=== PATIENT | male | born 1990 | race Two or more races ===

== ENCOUNTER 2017-02-11 05:30 | Emergency (ER) | payer MEDICAID ==
--- NOTE | 2017-02-11 05:46 | ED Physician Chart ---
Chief Complaint/HPI - Patient Information Date Seen:: 02/11/17 Time Seen:: 05:30 Chief Complaint:: L flank pain since about 4 am today. History of Present Illness:: Brought in by private auto because of acute onset of L flank pain since about 4 am today. Pain is characterized as localized, sharp, and constant. Pain can be worsened with standing up, improved with lying down. No fever. Pt had nausea/ vomiting earlier with vomitus consisted of gastric content. No hematemesis. Last BM yesterday at about 6 pm with normal color/consistency. No hematochezia or melena. No dysuria, urgency, or frequency with urination. Allergies:: Allergies Allergy/AdvReac Type Severity Reaction Status Date / Time No Known Allergies Allergy Verified 02/11/17 05:38 Vitals:: see Nurse Note. Historian:: Patient Family MD/PCP:: Unknown LMP:: N/A Review:: Nurse's Note Reviewed Review of Systems - Review of Systems General/Constitutional: No fever, No chills, No weight loss, No weakness, No edema, No loss of appetite Skin: No skin lesions, No rash, No bruising Head: No headache, No light-headedness Eyes: No loss of vision, No pain, No diplopia ENT: No earache, No nasal drainage, No sore throat Neck: No neck pain, No swelling, No thyromegaly, No stiffness, No mass noted Cardio Vascular: No chest pain, No palpitations, No edema Pulmonary: No SOB, No cough, No wheezing GI: Nausea, Vomiting, No diarrhea, Pain, No melena, No hematochezia, No constipation, No hematemesis G/U: No dysuria, No frequency, No hematuria Musculoskeletal: No bone or joint pain, No back pain, No muscle pain Endocrine: No polyuria, No polydipsia Psychiatric: No prior psych history Hematopoietic: No bruising, No lymphadenopathy Allergic/Immuno: No urticaria, No angioedema Neurological: No syncope, No focal symptoms, No weakness, No paresthesia, No headache, No dizziness, No confusion, No vertigo Past Medical History - Past Medical History Past Medical History: No significant medical hx Family History: Heart disease (PGF), Diabetes Melitus (PGF, PGM.), HTN (PGF, PGM ), Cancer (PGF) Social History: Smoker (1/2 pack per week. Pt has been informed about health risks associated with chronic tobacco use and has been advised to quit. Pt has been encouraged to enroll in a smoking cessation program. Pt acknowledges understanding.), Alcohol (Occaional on weekend. Pt has been informed about health risks associated with alcohol use and has been advised to stop. 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 Surgical History: None Psychiatricy History: None Medication: None Family Medical History - Family Member Father History Unknown: Yes Hx Family Diabetes: Yes Physical Exam - Physical Examination General/Constitutional: Awake, Well-developed, well-nourished, Alert, GCS 15, Non-toxic appearing, Ambulatory Other Gen/Cons comments:: Breathes comfortably, speaks clearly, and ambulates without difficulty. Pt is in severe distress due to L flank pain. Head: Atraumatic Eyes: Lids, conjuctiva normal, PERRL, EOMI Other Eyes comments:: Anicteric sclera Skin: Nl inspection, No rash, No skin lesions, No ecchymosis, Well hydrated, No lymphadenopathy ENMT: External ears, nose nl, Nasal exam nl, Lips, teeth, gums nl, Oropharynx nl , Tonsils nl Neck: Nontender, Full ROM w/o pain, No nuchal rigidity, No mass, No stridor Respiratory: Nl effort/Exclusion, Clear to Auscultation, No Wheeze/Rhonchi/Rales Cardio Vascular: RRR, No murmur, gallop, rubs GI: No organomegaly, No hernia, Normal BS's, Nondistended, No mass/bruits, No McBurney tenderness Other GI comments:: Tenderness to palpation at L flank. Soft. No R/G. : No CVA tenderness Extremities: No tenderness or effusion, Full ROM, normal strength in all extremities, No edema, Normal digits & nails Neuro/Psych: Alert/oriented (oriented x 3), Normal gait, No focal deficits Misc: normal gait, Normal back, No paraspinal tenderness ED Septic Shock - . Is Septic Shock (SBP<90, OR Lactate>4 mmol\L) present?: No Reassessment (Disposition) - Reassessment Reassessment:: 0635 Pt feels much better and does not need more pain control. Awaiting lab results and CT. 0710 Pt remains stable. Case has been signed off to Dr. Machuca at 0710 for continued care. - Diagnosis Diagnosis:: L flank pain. Stable and improved.
[2017-02-11] MEDS ORDERED: HYDROmorphone 1 mg/mL 1mL Syr ONE (05:58)
[2017-02-11] MEDS: HYDROmorphone 1 mg/mL 1mL Syr IVP STA (06:17)
[2017-02-11 06:19] LABS: URINE COLOR YELLOW
[2017-02-11 06:20] LABS: URINE BILIRUBIN NEGATIVE (NEGATIVE); URINE BLOOD NEGATIVE (NEGATIVE); URINE GLUCOSE (UA) NEGATIVE (NEGATIVE); URINE KETONE NEGATIVE (NEGATIVE); URINE PH 5.5; URINE PROTEIN NEGATIVE (NEGATIVE); URINE UROBILINOGEN 0.2 E.U./dL (0.2 - 1.0)
[2017-02-11 06:21] LABS: % BASOPHILS 1.4 % (0.0-2.0); % EOSINOPHILS 1.7 % (0.0-5.0); % LYMPHOCYTES 21.3 % (20.0-50.0); % MONOCYTES 6.5 % (2.0-10.0); % NEUTROPHILS 69.1 % (40.0-80.0); HEMOGLOBIN 15.8 gm/dL (13.2-17.3); MEAN CELL VOLUME 97.4 fl (80-99); MEAN CORPUSCULAR HEMOGLOBIN 32.8 pg (26.0-30.0); MEAN CORPUSCULAR HGB CONC 33.7 pg (28.0-36.0); NEUTROPHILE ABSOLUTE 6.9 Th/cmm (1.8-8.0); PLATELET COUNT 326 Th/cmm (150-400); RED BLOOD COUNT 4.82 Mil/cmm (4.30-5.70); WHITE BLOOD COUNT 10.1 Th/cmm (4.8-10.8)
[2017-02-11 06:35] LABS: INR 0.92 (0.5-1.4); PROTHROMBIN TIME (TEST) 9.6 SECONDS (9.5-11.5)
[2017-02-11 06:37] LABS: ALB/GLOB RATIO 1.9 (1.0-1.8); ALKALINE PHOSPHATASE 55 U/L (34-104); AMYLASE SERUM 42 U/L (29-103); ANION GAP 11.7 (7.0-16.0); BILIRUBIN,TOTAL 0.5 mg/dL (0.3-1.0); BUN - UREA NITROGEN 14 mg/dL (7-25); BUN/CREATININE RATIO 12.7; CALCIUM SERUM 10.3 mg/dL (8.6-10.3); CARBON DIOXIDE 23.1 mEq/L (21.0-31.0); CHLORIDE 104 mEq/L (98-107); CREATININE - SERUM 1.1 mg/dL (0.7-1.3); GLUCOSE 124 mg/dL (70-105); LIPASE 13 U/L (11-82); POTASSIUM SERUM 3.8 mEq/L (3.5-5.1); SGOT 16 U/L (13-39); SGPT/ALT 20 U/L (7-52); SODIUM SERUM 135 mEq/L (136-145)
--- NOTE | 2017-02-11 08:32 | Diagnostic Imaging Report ---
CT scan abdomen and pelvis without intravenous contrast HISTORY: Pain Total DLP equals 585 CTDI equals 10.4 Axial sections were obtained from the xiphoid process down to the pubic symphysis. The liver exhibits a normal size and contour. No focal lesions. The spleen appears normal. No abnormality seen in the region of pancreas. No focal renal lesions. No calculi. No hydronephrosis. No definite abnormality seen in the region of the appendix. The exam of the pelvis demonstrates preservation of normal fat planes. No abnormal soft tissue masses or abnormal fluid collections. IMPRESSION: No acute abnormalities
--- NOTE | 2017-02-11 08:45 | ED Physician Chart ---
Chief Complaint/HPI - Patient Information Allergies:: Allergies Allergy/AdvReac Type Severity Reaction Status Date / Time No Known Allergies Allergy Verified 02/11/17 05:38 Vitals:: Vital Signs - 8 hr 02/11/17 05:35 Temp 96.9 F HR 63 RR 18 BP 136/74 O2 Sat % 100 Family Medical History - Family Member Father History Unknown: Yes Hx Family Diabetes: Yes Labs/Radiology/EKG Results - Lab Results Results: Laboratory Tests 02/11/17 02/11/17 02/11/17 05:50 06:10 06:10 WBC 10.1 RBC 4.82 Hgb 15.8 Hct 47.0 MCV 97.4 MCH 32.8 H MCHC Differential 33.7 RDW 12.0 Plt Count 326 MPV 8.0 Neutrophils % 69.1 Lymphocytes % 21.3 Monocytes % 6.5 Eosinophils % 1.7 Basophils % 1.4 PT 9.6 INR 0.92 PTT (Actin FS) 20.9 L Sodium Potassium Chloride Carbon Dioxide Anion Gap BUN Creatinine Est GFR ( Amer) Est GFR (Non-Af Amer) BUN/Creatinine Ratio Glucose Calcium Total Bilirubin AST ALT Alkaline Phosphatase Total Protein Albumin Globulin Albumin/Globulin Ratio Amylase Lipase Urine Source CLEAN C Urine Color YELLOW Urine Clarity CLEAR Urine pH 5.5 Ur Specific [place] >= 1.030 Urine Protein NEGATIVE Urine Glucose (UA) NEGATIVE Urine Ketones NEGATIVE Urine Blood NEGATIVE Urine Nitrate NEGATIVE Urine Bilirubin NEGATIVE Urine Urobilinogen 0.2 Ur Leukocyte Esterase NEGATIVE 02/11/17 06:10 WBC RBC Hgb Hct MCV MCH MCHC Differential RDW Plt Count MPV Neutrophils % Lymphocytes % Monocytes % Eosinophils % Basophils % PT INR PTT (Actin FS) Sodium 135 L Potassium 3.8 Chloride 104 Carbon Dioxide 23.1 Anion Gap 11.7 BUN 14 Creatinine 1.1 Est GFR ( Amer) > 60.0 Est GFR (Non-Af Amer) > 60.0 BUN/Creatinine Ratio 12.7 Glucose 124 H Calcium 10.3 Total Bilirubin 0.5 AST 16 ALT 20 Alkaline Phosphatase 55 Total Protein 7.4 Albumin 4.8 Globulin 2.6 Albumin/Globulin Ratio 1.9 H Amylase 42 Lipase 13 Urine Source Urine Color Urine Clarity Urine pH Ur Specific [place] Urine Protein Urine Glucose (UA) Urine Ketones Urine Blood Urine Nitrate Urine Bilirubin Urine Urobilinogen Ur Leukocyte Esterase Assessment - Assessment General Assessment: possible passed renal stone ED Septic Shock - . Is Septic Shock (SBP<90, OR Lactate>4 mmol\L) present?: No - <6hrs of presentation: Vital Signs: Vital Signs - 8 hr 02/11/17 05:35 Temp 96.9 F HR 63 RR 18 BP 136/74 O2 Sat % 100 Reassessment (Disposition) - Reassessment Reassessment Condition:: Improved - Diagnosis Diagnosis:: left flank pain - Aftercare/Follow up Instructions Aftercare/Follow-Up Instructions:: Counseled pt regarding lab results/diagnosis & need follow up, Refer to Discharge Instructions, Counseled pt & family regarding lab results/diagnosis & need follow up Notes:: the patient tolerated the ct scan and it was negative for a stone. however the patient did urinate just before the scan was done and might have passed the stone. Medication Prescribed:: gabapentin - Patient Disposition Discharge/Transfer:: Home
== END 2017-02-11 08:40 | disposition home or self-care (01) ==
LOC: ER 05:30
DX: R10.84 Generalized abdominal pain (principal); F17.210 Nicotine dependence, cigarettes, uncomplicated
CPT/HCPCS: 99285; 96374; 96375; 74176; 36415; 85025; 85610; 81003; 82150; 83690; 80053; J2405; J1170

== ENCOUNTER 2019-02-15 07:35 | Emergency (ER) | payer MEDICAID ==
[2019-02-15] MEDS ORDERED: Fluorescein Sodium 1 mg Ophth Strip ONE (08:05)
[2019-02-15] MEDS ORDERED: Dacriose Ophth Soln 120 mL Bottle ONE (08:05)
[2019-02-15] MEDS ORDERED: TETRACAINE HCL 0.5% OPHTH SOLN 4ML BOTTLE ONE (08:06)
[2019-02-15] MEDS ORDERED: Tetracaine 0.5% Ophth Soln 15 mL Soln RIGHT EYE ONE (08:39)
[2019-02-15] MEDS ORDERED: Fluorescein Sodium 1 mg Ophth Strip RIGHT EYE ONE (08:39)
[2019-02-15] MEDS ORDERED: Dacriose Ophth Soln 120 mL Bottle RIGHT EYE ONE (08:40)
--- NOTE | 2019-02-15 23:11 | ED Physician Chart ---
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 no obvious trauma no eye discharge Allergies:: Allergies Allergy/AdvReac Type Severity Reaction Status Date / Time No Known Allergies Allergy Verified 02/11/17 05:38 ED Review of Systems - Review of Systems General/Constitutional: No fever Skin: No skin lesions Head: Headache Eyes: Acuity change, Other (rt eye pain and irritation) ENT: No earache Neck: No neck pain Cardio Vascular: No chest pain Pulmonary: No SOB GI: No nausea, No vomiting G/U: No dysuria Musculoskeletal: No bone or joint pain Endocrine: No polyuria Psychiatric: No prior psych history Hematopoietic: No bruising Allergic/Immuno: No urticaria Neurological: No syncope ED Past Medical History - Past Medical History Past Medical History: No significant medical hx Family Medical History - Family Member Father History Unknown: Yes Hx Family Cancer: Yes Hx Family Hypertension: Yes Hx Family Diabetes: Yes ED Physical Exam - Physical Examination General/Constitutional: Well-developed, well-nourished Head: Atraumatic Other Eyes comments:: rt eye with decreased opening and pain with opening eyelids Skin: Nl inspection ENMT: External ears, nose nl Neck: Nontender Respiratory: Nl effort/Exclusion Cardio Vascular: RRR GI: No tenderness/rebounding/guarding : No CVA tenderness Extremities: No tenderness or effusion Neuro/Psych: Alert/oriented ED Assessment - Assessment General Assessment: rt eye corneal abrasion s/p erythromycin eye oint after eye examination with flourescein eye wash and opthane eye drops ED Septic Shock - . Is Septic Shock (SBP<90, OR Lactate>4 mmol\L) present?: No ED Reassessment (Disposition) - Reassessment Reassessment:: lt eye corneal abrasion s/p erythromycin eye ointment and eye patch - Diagnosis Diagnosis:: as above - Aftercare/Follow up Instructions Aftercare/Follow-Up Instructions:: Counseled pt regarding lab results/diagnosis & need follow up - Patient Disposition Discharge/Transfer:: Home Condition at Disposition:: Stable
== END 2019-02-15 08:40 | disposition home or self-care (01) ==
LOC: ER 07:35
DX: H18.821 Corneal disorder due to contact lens, right eye (principal)